=== PATIENT | female | born 1985 | race Caucasian/White ===

== ENCOUNTER 2021-05-15 15:29 | Outpatient (REF) | payer MEDICARE, MEDICAID, SELFPAY ==
--- NOTE | 2021-05-15 16:31 | MHC.AU.ANR ---
Adult Audiological Evaluation Date of Visit: 05/15/21 Reason for Appointment: Audiological evaluation due to concern for decreased hearing. Ms. Mo notes that she has a significant history of middle-ear fluid and feels her hearing is decreasing. She notes that she often has to ask people for repetition and feels her ears are blocked. She has frequent congestion, allergies, and post-nasal drip. She has notes feels of dizziness and being off-balance. Does patient feel they have a hearing loss?: Yes If Yes, Which Ear?: Both Ears When Was Hearing Difficulty First Noticed?: Years ago Has hearing been tested previously?: No Hearing Handicap Inventory: HHIE SCORE: 20 Based on HHIE score, patient has: Mild to moderate perceived hearing handicap Ear History: Family History of Hearing Loss?: Yes: Mother and aunts Ear Infections in Childhood: Both Ears Blocked/Full Sensation in Ear(s): Both Ears Medical History: Medical History: Diabetes, Dizziness or Unsteadiness Medical History (Other): in 2005, four armpit surgeries, GERD Allergies: Doxycycline, bactrim Medication List: List not provided today Otoscopy: Right Ear: [place], white, cloudy tympanic membrane. Clear canal. Left Ear: [place], white, cloudy tympanic membrane. Clear canal. Tympanometry: Tympanometry performed due to: Conductive component found in audiometric results Right Ear: Normal Middle Ear System (Type A) Left Ear: Negative Middle Ear Pressure (Type C) Hearing Evaluation: Transducer(s) Used: Insert Earphones, Bone Conduction Method: Conventional Audiometry Stimuli Used: Pure Tones Right Ear: Description of Hearing: Mild conductive hearing loss from 250-500 Hz, rising to borderline-normal hearing from 1625-1308 Hz. Air-bone gaps of 10-30 dBHL at all frequencies tested. Left Ear: Description of Hearing: Mild conductive hearing loss at 250 Hz, rising to borderline-normal hearing from 0038-9648 Hz. Air-bone gaps of 10-20 dBHL at all frequencies tested. Speech Recognition Threshold (SRT): Method Used: Monitored Live Voice Stimuli Used: Spondee Words Right Ear: 25 dBHL Left Ear: 25 dBHL Word Discrimination: Method: Recorded Lists Word Lists Used: NU-6 Right Ear: 100% at 65 dBHL Left Ear: 96% at 65 dBHL Interpretation of Results: Today's testing indicates a mild conductive hearing loss bilaterally in the presence of slight negative middle-ear pressure in the right ear. When middle ear dysfunction and mild hearing loss are present, sound can have a muffled or dull quality, as if one is listening underwater. It can be difficult to understand speech in the presence of background noise, or when the speaker is talking from a distance. Recommendations: Audiological re-evaluation in one year. Referral to Ear, Nose, and Throat to address middle ear dysfunction and conductive hearing loss. Diagnosis: Primary Diagnosis: H90.0 Conductive Hearing Loss, Bilateral Secondary Diagnosis: H69.91 Unspecified Eustachian Tube Dysfunction, Right Ear Services Performed: Services Performed: Comprehensive Audiological Evaluation (CPT 83205) Tympanometry (CPT 63450) Signature: Provider: Harsh Gutierrez, CCC-A
== END 2021-05-15 15:30 | disposition home or self-care (01) ==
LOC: HO.SH 15:29
PROVIDERS: Visit Provider Nurse Practitioner Family
DX: Z01.118 Encounter for examination of ears and hearing with other abnormal findings (principal); H90.0 Conductive hearing loss, bilateral
CPT/HCPCS: 92557; 92567